=== PATIENT | female | born 1945 | race Caucasian/White ===

== ENCOUNTER → 2016-07-13 | Outpatient (CLI) | payer MEDICARE, BC ==
[~2016-07-13] MED LIST: AMARYL1 MG PO; ASPIRIN81 MG PO; CARISOPRODOL350 MG PO; CEROVITE ADVANC1 TAB PO; CERTAVITE-ANTI1 EACH PO; CHLORTHALIDONE25 MG PO; COLACE100 MG PO; CULTURELLE1 CAP PO; CYMBALTA30 MG PO; FARXIGA5 MG PO; FLEXERIL10 MG PO; GLUCOPHAGE1000 MG PO; HALFPRIN81 MG PO; HYDROCHLOROTH12.5 MG PO; LISINOPRIL20 MG PO; MEDROL DOSEPAK4 MG PO; MEDROL4 MG PO; MIRALAX17 GM PO; MOBIC15 MG PO; MULTIPLE VITAM1 EAC2 PO; NUCYNTA50 MG PO; NYSTOP15 GM TOP; PRILOSEC20 MG PO; PRINIVIL10 MG PO; SENNA-TIME S1 TAB PO; SULFAMETHOXAZO1 EACH PO; SYNTHROID50 MCG PO; TOPROL XL100 MG PO; TOPROL XL50 MG PO; TYLENOL500 MG PO; ULTRAM50 MG PO; ZOCOR20 MG PO
== END | disposition short-term general hospital (02) ==
LOC: CLNEUR 09:13
DX: Z48.89 Encounter for other specified surgical aftercare (principal); Z98.1 Arthrodesis status

== ENCOUNTER 2016-10-19 15:10 | Emergency (ER) | payer MEDICARE, BC ==
[~2016-10-19] VITALS: Ht 162.6 cm; Wt 66.7 kg
[~2016-10-19 15:10] MED LIST changes: -AMARYL1 MG PO; -CARISOPRODOL350 MG PO; -CYMBALTA30 MG PO; -HYDROCHLOROTH12.5 MG PO; -MOBIC15 MG PO
[2016-11-27] MEDS ORDERED: CARISOPRODOL350 MG PO (09:16)
[2016-11-27] MEDS ORDERED: CYMBALTA30 MG PO (09:16)
[2016-11-27] MEDS ORDERED: AMARYL1 MG PO (09:16)
[2016-11-27] MEDS ORDERED: HYDROCHLOROTH12.5 MG PO (09:17)
[2016-11-27] MEDS ORDERED: LISINOPRIL20 MG PO (09:18)
[2016-11-27] MEDS ORDERED: MOBIC15 MG PO (09:19)
[2016-11-27] MEDS ORDERED: TOPROL XL100 MG PO (09:20)
== END 2016-10-19 16:46 | disposition short-term general hospital (02) ==
LOC: ER 15:10
DX: M54.16 Radiculopathy, lumbar region (principal); E11.42 Type 2 diabetes mellitus with diabetic polyneuropathy; K21.9 Gastro-esophageal reflux disease without esophagitis; E78.5 Hyperlipidemia, unspecified; I10 Essential (primary) hypertension; E03.9 Hypothyroidism, unspecified; Z88.5 Allergy status to narcotic agent; Z88.1 Allergy status to other antibiotic agents; Z88.0 Allergy status to penicillin; Z91.02 Food additives allergy status; Z79.82 Long term (current) use of aspirin; Z79.84 Long term (current) use of oral hypoglycemic drugs; Z90.49 Acquired absence of other specified parts of digestive tract; Z90.710 Acquired absence of both cervix and uterus; Z79.899 Other long term (current) drug therapy
CPT/HCPCS: J1885